=== PATIENT | male | born 1975 | race Hispanic/Latino ===

== ENCOUNTER 2022-07-31 13:49 | Emergency (ER) | payer OTHER ==
--- OUTSIDE RECORDS SUMMARY | 2022-07-31 13:54 | XMS REPORT | Continuity of Care Document ---
:1975 Author Organization Formerly [facility] t Address [address] [place] [address] Care Team Providers Name Role Phone NICKO MUNOZ Attending Clinician Unavailable Payers Payer Name Policy Type Policy Number Effective Date Expiration Date Isaac LOPEZ CHOICE POS [id number] 2021 00:00:00 II Problems This patient has no known problems. Allergies, Adverse Reactions, Alerts This patient has no known allergies or adverse reactions. Medications This patient has no known medications. Procedures This patient has no known procedures. Encounters Start End Encounter Admission Attending Care Care Encounter Source Date/Time Date/Time Type Type Clinicians Facility Department ID 2022-07-15 Outpatient [facility] [id number] ID 08:58:[id number] [facility] 2022-07-10 Outpatient [facility] [id number] ID 12:35:56 [id number] [facility] 2022-07-15 2022-07-15 Outpatient ALEXANDER [facility] [id number] ID 13:30:00 13:30:00 [facility]ly [facility], later [facility] Results This patient has no known results.
--- NOTE | 2022-07-31 15:48 | RAD REPORT ---
EXAM DESCRIPTION: CT - Chest For Pe Angio - 07/31/2022 3:10 pm CLINICAL HISTORY: right sided chest pain COMPARISON: Chest Abdomen Pelvis W Cont dated 07/01/2022 TECHNIQUE: Thin axial CT images of the chest were obtained following administration of 100 mL Isovue 370 IV contrast. Multiplanar reconstructions, and maximum intensity projection reconstructions were generated and reviewed. Exam utilizes a protocol for optimal evaluation of pulmonary arterial tree. All CT scans are performed using dose optimization technique as appropriate and may include automated exposure control or mA/KV adjustment according to patient size. FINDINGS: Pulmonary arteries are normal. No emboli or other suspicious finding. No acute or signific ant aorta findings. No mass or infiltrate in the lung parenchyma. No pleural thickening or pleural effusion. No pneumotho rax. No abnormal mediastinal or hilar masses or lymphadenopathy seen. No chest wall mass or abnormal axill iary lymphadenopathy. IMPRESSION: No evidence of acute central pulmonary emboli. Negative CT scan of the chest for other significant findings.
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
[2022-07-31 17:43] VITALS: BP 135/96; TEMP 98.5; O2SAT 98
== END 2022-07-31 16:55 | disposition home or self-care (01) ==
LOC: ER 13:49
DX: R07.89 Other chest pain (principal); F17.210 Nicotine dependence, cigarettes, uncomplicated
CPT/HCPCS: 71275; Q9967